=== PATIENT | male | born 1975 | race Caucasian/White ===

== ENCOUNTER 2019-03-25 10:20 | Emergency (ER) | payer MEDICAID, OTHER ==
[2019-03-25] MEDS: KETOROLAC 30 MG INJ IV (12:36)
[2019-03-25] MEDS: SOD CHLORIDE 0.9% 1,000 ML IV (12:36)
[2019-03-25 12:37] LABS: ADD MAN DIFF? NO
[2019-03-25 12:39] LABS: BASOPHILS % 0.4 % (0.0-2.0); EOSINOPHILS # 0.1 10^3/ul (0.0-0.5); EOSINOPHILS % 0.7 % (0.0-7.0); HEMATOCRIT 43.1 % (42.0-52.0); LYMPHOCYTES # 1.2 10^3/ul (0.8-2.9); MEAN CORPUSCULAR HEMOGLOBIN 29.2 pg (29.0-33.0); MEAN CORPUSCULAR HGB CONC 32.5 g/dl (32.0-37.0); MEAN CORPUSCULAR VOLUME 89.8 fl (82.0-101.0); MEAN PLATELET VOLUME 9.6 fl (7.4-10.4); MONOCYTE # 0.6 10^3/ul (0.3-0.9); MONOCYTES % 5.5 % (0.0-11.0); NEUTROPHIL # 8.1 10^3/ul (1.6-7.5); NEUTROPHILS % 81.1 % (39.0-77.0); PLATELET COUNT 170 10^3/UL (140-415); RED CELL DISTRIBUTION WIDTH 14.6 % (11.5-14.5)
[2019-03-25 12:50] LABS: ADD UMIC YES; UR ASCORBIC ACID NEGATIVE (NEGATIVE); UR BILIRUBIN (Dip) NEGATIVE (NEGATIVE); UR BLOOD (Dip) 1+ mg/dL (NEGATIVE); UR CLARITY CLEAR (CLEAR); UR COLOR YELLOW (YELLOW); UR GLUCOSE (Dip) NEGATIVE (NEGATIVE); UR KETONES (Dip) NEGATIVE (NEGATIVE); UR LEUKOCYTE ESTERASE (Dip) NEGATIVE Leu/ul (NEGATIVE); UR NITRITE (Dip) NEGATIVE (NEGATIVE); UR RBC 0 /HPF (0-5); UR SPECIFIC GRAVITY (Dip) 1.005 (1.003-1.030); UR TOTAL PROTEIN (Dip) NEGATIVE (NEGATIVE); UR UROBILINOGEN (Dip) NEGATIVE (NEGATIVE); UR WBC 1 /HPF (0-5)
[2019-03-25 12:55] LABS: ALANINE AMINOTRANSFERASE 74 IU/L (13-69); ALBUMIN 4.8 g/dl (3.3-4.9); ALBUMIN/GLOBULIN RATIO 0.97; ALKALINE PHOSPHATASE 91 IU/L (42-121); ANION GAP 13 (5-13); ASPARTATE AMINO TRANSFERASE 105 IU/L (15-46); BILIRUBIN,INDIRECT 1.7 mg/dl (0-1.1); BILIRUBIN,TOTAL 1.7 mg/dl (0.2-1.3); BLOOD UREA NITROGEN 21 mg/dl (7-20); CARBON DIOXIDE 24 mmol/L (21-31); CHLORIDE 100 mmol/L (97-110); CREATININE 0.66 mg/dl (0.61-1.24); Estimated GFR > 60 mL/min (>60); GLUCOSE 108 mg/dl (70-220); LIPASE 215 U/L (23-300); POTASSIUM 3.6 mmol/L (3.5-5.1); SODIUM 137 mmol/L (135-144); TOTAL PROTEIN 9.7 g/dl (6.1-8.1)
== END 2019-03-25 14:02 | disposition home or self-care (01) ==
LOC: FTE 10:20
DX: N23 Unspecified renal colic (principal); R07.89 Other chest pain
CPT/HCPCS: 36415; 74176; 80053; 81001; 83690; 85025; 93005; 96374; 99285-25